=== PATIENT | female | born 1990 | race Caucasian/White ===

== ENCOUNTER 2018-01-31 17:53 | Emergency (ER) | payer OTHER ==
--- NOTE | 2018-01-31 18:33 | PDOC ---
Rapid Medical Evaluation Time Seen by Provider: 01/31/18 18:28 Medical Evaluation: 01/31/18 18:29 I have performed a brief in-person evaluation of this patient. The patient presents with a chief complaint of: laceration to right ankle this afternoon. States knife slipped off table and fell onto lower leg. Complaining of pain at site. Unknown tetanus status Pertinent physical exam findings are NAD open laceration to anterior ankle unlabored breathing I have ordered the following: xray, urine preg, tetanus The patient will proceed to Ed for further evaluation
[2018-01-31 18:35] VITALS: BP 114/77; PULSE 96; TEMP 97.8; BMI 24.1
[2018-01-31] MEDS ORDERED: DIPHTH,PERTUSS(ACELL),TET 0.5 ML DISP.SYRIN IM ONE (18:36)
[2018-01-31] MEDS ORDERED: IBUPROFEN 600 MG TABLET (FP) PO ONE ×2 (18:36→19:36)
--- NOTE | 2018-01-31 19:02 | PDOC ---
History of Present Illness - General Chief Complaint: Laceration Stated Complaint: LACERATION Time Seen by Provider: 01/31/18 18:28 History Source: Patient Exam Limitations: No Limitations - History of Present Illness Initial Comments: 01/31/18 19:42 27 yr female with laceration to the right lower leg injured at work. Pt states she dropped a knife at work . pt ambulatory with limp. no pmhx no allergies. Past History - Past Medical History Allergies/Adverse Reactions: Allergies Allergy/AdvReac Type Severity Reaction Status Date / Time No Known Allergies Allergy Verified 01/31/18 18:34 Home Medications: Ambulatory Orders Cephalexin [Keflex] 250 mg PO QID #28 capsule 01/31/18 Ibuprofen 600 mg PO TID PRN #20 tablet 01/31/18 COPD: No - Immunization History Immunization Up to Date: No - Suicide/Smoking/Psychosocial Hx Smoking History: Never smoked *Physical Exam - Vital Signs Last Vital Signs Temp Pulse Resp BP Pulse Ox 97.8 F 96 H 18 114/77 98 01/31/18 18:34 01/31/18 18:34 01/31/18 18:34 01/31/18 18:34 01/31/18 18:34 - Physical Exam General Appearance: Yes: Nourished, Appropriately Dressed HEENT: positive: EOMI, WANDA Integumentary: positive: Normal Color, Dry, Warm, Other (2.7cm lineal vertical laceration to the muscle, distal lainez , nv intact strong pulse diatl to laceration moves all toes well , ankle foot FROM ) Procedures - Laceration/Wound Repair Right Distal Leg Wound Length: 2.6 to 5.0 cm Wound Explored: clean Wound's Depth, Shape: into muscle, linear Irrigated w/ Saline: Yes Betadine Prep: Yes Anesthesia: 1% Lidocaine Amount of Anesthetic (ccs): 6 Wound Repaired With: Sutures Suture Size/Type: 4:0, nylon Number of Sutures: 8 Sterile Dressing Applied: Yes Type of Splint Applied: steri strips placed , bulky dressing placed Progress: 01/31/18 19:48 crutches given Medical Decision Making - Medical Decision Making 01/31/18 19:48 cc: laceration to the right lower leg with knife at work wound repaired with sutures well approximated wound check in 2 days keflex for 7 days tetanus updated dc inst given via djiboutian translation to pt and her friend who speaks gabonese well all questions asked and answered at discharge *DC/Admit/Observation/Transfer Diagnosis at time of Disposition: Laceration - Discharge Dispostion Disposition: HOME Condition at time of disposition: Improved - Prescriptions Prescriptions: Cephalexin [Keflex] 250 mg PO QID #28 capsule Ibuprofen 600 mg PO TID PRN #20 tablet PRN Reason: Pain - Referrals Referrals: Silvestre Jewell MD [Staff Physician] - - Patient Instructions Printed Discharge Instructions: DI for Laceration Repair Additional Instructions: keep dry DO NOT GET WET some oozing of blood is normal if the blood soaks throew the dressing apply pressure and return to the ER elevate the leg at above level of heart for the next 2 days return in 2 days for a wound check take keflex antibiotic for 5 days take ibuprofen as directed for pain suture removal in 12-14 days return to ER follow with the orthopedist if any worsening symptoms mantngase seco NO SE LAURYN MOJADO un poco de supuracin de augustine es normal si la augustine empapa el apsito aplica presin y regresa a la [place] de emergencias elevar la pierna por encima del nivel del corazn randall los prximos 2 camp regresar en 2 camp para un chequeo de herida patricia antibitico Keflex randall 5 camp patricia ibuprofeno segn lo indicado para el dolor eliminacin de suturas en 12-14 camp volver a ER siga con el el ortopedista si cualquier empeoramiento de los sntomas Print Language: NEPALI - Post Discharge Activity
== END 2018-01-31 19:56 | disposition home or self-care (01) ==
LOC: JERFT 17:53
PROC: 3E0234Z Introduction of Serum, Toxoid and Vaccine into Muscle, Percutaneous Approach (ICD-10-PCS; principal; 2018-01-31)
PROC: 0JQP0ZZ Repair Left Lower Leg Subcutaneous Tissue and Fascia, Open Approach (ICD-10-PCS; 2018-01-31)
DX: S91.012A Laceration without foreign body, left ankle, initial encounter (principal); W26.0XXA Contact with knife, initial encounter; Y93.G1 Activity, food preparation and clean up; Y92.511 Restaurant or cafe as the place of occurrence of the external cause; Y99.0 Civilian activity done for income or pay
CPT/HCPCS: 73590-TC-RT-FY; 84703; 90715; 99281-25

== ENCOUNTER 2018-02-02 08:27 | Emergency (ER) | payer OTHER ==
[2018-02-02 08:31] VITALS: BP 120/70; PULSE 104; TEMP 98.8; BMI 27.4
--- NOTE | 2018-02-02 08:53 | PDOC ---
Suture Removal/Wound Check HPI - History of Present Illness Chief Complaint: Revisit,Burn Stated Complaint: FOLLOW-UP Time Seen by Provider: 02/02/18 08:42 History Source: Yes: Patient, Co-worker (Cali[employer]o--translated per pt's request) Exam Limitations: Yes: No Limitations - Previous ED Treatment Type of procedure performed on last visit: Yes: Laceration Repair Tetanus Immunization: Yes: Up to Date Past History - Travel Traveled outside of the country in the last 30 days: No Close contact w/someone who was outside of country & ill: No - Past Medical History Allergies/Adverse Reactions: Allergies Allergy/AdvReac Type Severity Reaction Status Date / Time No Known Allergies Allergy Verified 01/31/18 18:34 Home Medications: Ambulatory Orders NK [No Known Home Medication] 02/02/18 COPD: No - Immunization History Immunization Up to Date: No - Suicide/Smoking/Psychosocial Hx Smoking History: Never smoked Hx Alcohol Use: No Drug/Substance Use Hx: No Suture Removal/Wound Check PE - Physical Exam Location of Laceration/Wound: right: Ankle *Review of Systems - Review of Systems Constitutional: No: Chills, Fever Respiratory: No: Orthopnea, Shortness of Breath Cardiac (ROS): No: Chest Pain, Irregular Heart Rate, Lightheadedness Musculoskeletal: No: Back Pain Integumentary: No: Bruising, Change in Color, Dryness, Erythema Neurological: No: Headache, Numbness *Physical Exam - Vital Signs Last Vital Signs Temp Pulse Resp BP Pulse Ox 98.8 F 104 H 16 120/70 99 02/02/18 08:28 02/02/18 08:28 02/02/18 08:28 02/02/18 08:28 02/02/18 08:28 - Physical Exam General Appearance: Yes: Nourished Respiratory/Chest: positive: Lungs Clear, Normal Breath Sounds Cardiovascular: positive: Regular Rhythm, Regular Rate, S1, S2 Extremity: positive: Other (R lower leg--anterior aspect of ankle--3cm laceration noted with stitches/steristrip, no erythema or discahrge noted. ). negative: Inflammation Neurologic: positive: pattern duplicator II-XII NML intact, Fully Oriented, Alert Medical Decision Making - Medical Decision Making 02/02/18 08:57 Patient is a 27 years old female seen in the emergency room for a right lower leg laceration sustained with a knife while working. Laceration requiring stitches patient's tetanus was up-to-date. She is here for wound check. Patient has no complaints she's taken antibiotic and ibuprofen as prescribed. On examination evidence of 3 cm laceration anterior aspect of the ankle. There is no discharge worsening erythema or redness noted. Patient is ambulating fine. And distal pulses intact. Patient advised to return to the emergency room for one week for suture removal. Return to ER if Signs and symptoms of worsening infection discussed with pt. *DC/Admit/Observation/Transfer Diagnosis at time of Disposition: Visit for wound check - Discharge Dispostion Disposition: HOME Condition at time of disposition: Stable Decision to Admit order: No - Referrals - Patient Instructions Printed Discharge Instructions: DI for Laceration Repair Additional Instructions: Keep area dry continue antibiotics as prescribed Return to the Emergency Department if worsening symptoms of redness and discharge to the area Return for suture removal in 1 week as previously advised - Post Discharge Activity
== END 2018-02-02 09:00 | disposition home or self-care (01) ==
LOC: JERFT 08:27
DX: Z48.817 Encounter for surgical aftercare following surgery on the skin and subcutaneous tissue (principal)
CPT/HCPCS: 99281-25

== ENCOUNTER 2018-02-11 09:27 | Emergency (ER) | payer OTHER ==
[2018-02-11 09:44] VITALS: BP 100/65; PULSE 78; TEMP 98.2; BMI 26.6
--- NOTE | 2018-02-11 10:18 | PDOC ---
Suture Removal/Wound Check HPI - History of Present Illness Chief Complaint: Suture/Staple Removal(Here) Stated Complaint: STAPLE/SUTURE REMOVAL Time Seen by Provider: 02/11/18 09:58 History Source: Yes: Patient Exam Limitations: Yes: No Limitations Treated at: [facility] ED - Previous ED Treatment Type of procedure performed on last visit: Yes: Laceration Repair Past History - Travel Traveled outside of the country in the last 30 days: No Close contact w/someone who was outside of country & ill: No - Past Medical History Allergies/Adverse Reactions: Allergies Allergy/AdvReac Type Severity Reaction Status Date / Time No Known Allergies Allergy Verified 02/11/18 09:41 Home Medications: Ambulatory Orders NK [No Known Home Medication] 02/02/18 COPD: No - Immunization History Immunization Up to Date: No - Suicide/Smoking/Psychosocial Hx Smoking History: Never smoked Hx Alcohol Use: No Drug/Substance Use Hx: No Suture Removal/Wound Check PE - Physical Exam Laceration/Wound Check Symptoms: reports: Redness (around the suture placement consistent with allergic reaction.), Improved. denies: Discharge, Bleeding Current Severity Level: Mild (over the suture line) Location of Laceration/Wound: right: Leg (lower leg over the ankle. mild swelling present. no evidence of cellulitis) Pain Radiation: None *Review of Systems - Review of Systems Constitutional: No: Chills, Fever, Weakness Musculoskeletal: Yes: Joint Swelling (R ankle) Integumentary: Yes: Erythema (to the suture line) All Other Systems: Reviewed and Negative *Physical Exam - Vital Signs Last Vital Signs Temp Pulse Resp BP Pulse Ox 98.2 F 78 18 100/65 100 02/11/18 09:42 02/11/18 09:42 02/11/18 09:42 02/11/18 09:42 02/11/18 09:42 - Physical Exam General Appearance: Yes: Nourished, Appropriately Dressed. No: Apparent Distress (AAOX3 sitting on exam bed) Vascular Pulses: Dorsalis-Pedis (R): 2+, Doralis-Pedis (L): 2+ Musculoskeletal: negative: Decreased Range of Motion Extremity: positive: Swelling (over the suture line to R ankle), Erythema (near the sutures on the R ankle). negative: Calf Tenderness Integumentary: positive: Dry, Warm, Erythema (R ankle near suture sites. Consistent with allergy), Swelling (over the R ankle suture line.) Medical Decision Making - Medical Decision Making 02/11/18 10:40 Patient is a 27-year-old female who presents she department today for suture removal to her right anterior ankle. Wound is well approximated with no evidence of cellulitis, infection or drainage. Patient with mild redness around the suture site. Consistent with ALLERGY. Swelling may also be due to the reaction from the sutures. Sutures removed at this time. Patient instructed to follow-up with Dr. Jewell and orthopedics if her pain is not improving. I discussed the physical exam findings, ancillary test results and final diagnoses with the patient. I answered all of the patient's questions. The patient was satisfied with the care received and felt comfortable with the discharge plan and treatment plan. The Patient agrees to follow up with the primary care physician/specialist within 24-72 hours. Return precautions were given. *DC/Admit/Observation/Transfer Diagnosis at time of Disposition: Visit for suture removal - Discharge Dispostion Disposition: HOME Condition at time of disposition: Stable Decision to Admit order: No - Referrals Referrals: Silvestre Jewell MD [Staff Physician] - - Patient Instructions Printed Discharge Instructions: DI for Suture Removal Additional Instructions: You had your sutures/gee removed today. Please use bacitracin on the site for the next week. Keep the ankle elevated when resting You may take 600mg of ibuprofen every 6 hours as needed for pain and swelling Avoid soaking the area with water for 1 more week as to what the wound fully heal. Follow-up with Dr. Jewell if you are still having pain in the area. Return to the emergency department if you develop fevers, drainage from the site , increased pain, or have any changes in your symptoms. Hoy le quitaron las suturas / grapas. Utilice bacitracin en el sitio para la prxima semana. Mantenga el tobillo elevado cuando descansa Puede patricia 600 mg de ibuprofeno cada 6 horas, segn sea necesario para el dolor y la hinchazn Evite remojar el talya con agua por 1 semana ms en cuanto a la cicatrizacin completa de la herida. Renny un seguimiento con el Dr. Jewell si todava tiene dolor en el talya. Regrese al departamento de emergencias si presenta fiebre, drenaje del sitio, aumento del dolor o cambios en los sntomas. - Post Discharge Activity Forms/Work/School Notes: Back to Work
== END 2018-02-11 10:34 | disposition home or self-care (01) ==
LOC: JERFT 09:27
DX: Z48.817 Encounter for surgical aftercare following surgery on the skin and subcutaneous tissue (principal); Z48.02 Encounter for removal of sutures
CPT/HCPCS: 99281-25